=== PATIENT | male | born 1985 ===

== ENCOUNTER → 2021-03-27 | Outpatient (CLI) | payer BC ==
[2021-03-27] VITALS (11 sets, daily range): BP systolic 117–149; BP diastolic 73–95; PULSE 62–77; TEMP 98.1
[~2021-03-27] VITALS: Ht 182.9 cm; Wt 141.9 kg
[~2021-03-27] MED LIST: FISH OIL 1000MG1 CAP PO
[2021-03-27 07:36] LABS: INR 1.1 (0.8-3.0); PROTHROMBIN TIME 11.8 SECONDS (9.7-12.8)
== END ==
LOC: COL.RAD 06:30
PROVIDERS: Internal Medicine Gastroenterology
DX: K76.0 Fatty (change of) liver, not elsewhere classified (principal); F10.11 Alcohol abuse, in remission
CPT/HCPCS: J2250; J3010